=== PATIENT | female | born 1945 | race Caucasian/White ===

== ENCOUNTER 2018-06-03 09:08 | Emergency (ER) | payer MEDICARE, OTHER ==
[2018-06-03 09:18] VITALS: BP 129/67
--- NOTE | 2018-06-03 09:30 | UC ---
HPI Febrile Illness - HPI Summary HPI Summary: Patient is 71 year old female , without any significant past medical history who present today with fever for past 4 days. Reports measuring temperature of 103F for past 3 days. She does report having a sick contact with her having similar symptoms 3 weeks ago and was diagnosed with viral respiratory illness and his symptoms have completely resolved now.No for past 3 contacts . There was some nausea and she threw up twice Denies any productive cough chest pain or shortness of breath . No diaphoresis. Denies any abdominal pain ,diarrhea or constipation. She does report a lot of malaise and upper body aches and decreased appetite. There is some sore throat but no difficulty swallowing food. She feels like sinusitis-like facial pain. Overall she feels about the same and chills and fevers have improved. - History of Current Complaint Chief Complaint: UCGeneralIllness Time Seen by Provider: 06/03/18 09:21 Hx Obtained From: Patient Pain Intensity: 3 - Allergy/Home Medications Allergies/Adverse Reactions: Allergies Allergy/AdvReac Type Severity Reaction Status Date / Time No Known Allergies Allergy Verified 06/03/18 09:17 PMH/Surg Hx/FS Hx/Imm Hx Previously Healthy: Yes Other Endocrine History: negative Other Cardiovascular History: negative Other Respiratory History: negative Other GI/ History: negative Other Neurological History: negative Other Psychological History: negative Other Cancer History: negative - Surgical History Surgical History: None - Social History Alcohol Use: Daily Substance Use Type: None Smoking Status (MU): Never Smoked Tobacco Review of Systems All Other Systems Reviewed And Are Negative: Yes Constitutional: Positive: Fever - MAXIMUM TEMPERATURE of 103 para night at home Skin: Positive: Rash Eyes: Positive: Negative ENT: Positive: Negative, Sore Throat, Sinus Pain/Tenderness Respiratory: Positive: Cough - Nonproductive Cardiovascular: Positive: Negative Gastrointestinal: Positive: Nausea Genitourinary: Positive: Negative Motor: Positive: Negative Neurovascular: Positive: Negative Musculoskeletal: Positive: Negative Neurological: Positive: Negative Psychological: Positive: Negative Is Patient Immunocompromised?: No Physical Exam - Summary Physical Exam Summary: Physical Exam: Const: Appears well. No signs of apparent distress present. Alert and oriented x 3. Musculo: Walks with a normal gait. Head/Face: Atraumatic, normocephalic on inspection. Eyes: EOMI and PERRLA in both eyes. Conjunctivae clear. No discharge noted ENT: Mild pharyngeal erythema, Hearing normal, TM normal appearing bilaterally . No lymphadenopathy Respiratory: Respirations are unlabored. Lungs clear to auscultation bilaterally, no wheezing , rhonchi or rales noted . CVS: Regular rate and Rhythm, S1S2 normal , no murmurs identified. Extremities: Peripheral circulation is grossly normal. Pulses 2+ Abdomen : Soft non tender , nondistended , Bowel sounds present . No guarding , rebound tenderness or rigidity noted. Skin: No lesions or rash located on the upper extremities or on the lower extremities. Neuro: Cranial nerves II to XII intact, motor and sensory intact. DTR Intact bilaterally. Mood is normal. Affect is normal. Vital Signs: Initial Vital Signs Temp 99.3 F 06/03/18 09:14 Pulse 65 06/03/18 09:14 Resp 18 06/03/18 09:14 BP 129/67 06/03/18 09:14 Pulse Ox 98 06/03/18 09:14 Course/Dx - Course Course Of Treatment: During the visit today, we discussed the findings and further plan. We discussed the option of testing for flu but she is already 4 days out since onset of her symptoms so not a candidate for Tamiflu. Plan to treat it as a viral illness with supportive management with control of her symptoms of fever and keep herself hydrated. She will follow up with her primary care doctor in 2-3 days. Patient expressed understanding . - Diagnoses Clinic Provider Diagnoses: Acute viral illness Discharge - Sign-Out/Discharge Documenting (check all that apply): Patient Departure All imaging exams completed and their final reports reviewed: No Studies - Discharge Plan Condition: Stable Disposition: HOME Patient Education Materials: Viral Syndrome (ED) Referrals: Ramya Evans MD [Primary Care Provider] - 2 Days Additional Instructions: Take Tylenol as needed for control of fever Keep yourself hydrated, push fluids. Gatorade like electrolyte drink can be helpful. Try soups which are easier on your stomach. Follow up with your primary care doctor in 2 days. Return to Urgent care / ER if symptoms get worse. - Billing Disposition and Condition Condition: STABLE Disposition: Home
== END 2018-06-03 09:55 | disposition home or self-care (01) ==
LOC: UCEAST 09:08
DX: B34.9 Viral infection, unspecified (principal)
CPT/HCPCS: 99211; G0463